=== PATIENT | female | born 1985 | race Caucasian/White ===

== ENCOUNTER 2018-08-04 15:05 | Outpatient (CLI) | payer BC ==
--- NOTE | 2018-08-04 17:10 | RAD ---
HYSTEROSALPINGOGRAM: 08/04/18 HISTORY: Difficulty getting . COMPARISON: None. EXPOSURE: 0.6 minutes. 115 uGy*m2. FINDINGS: The initial advanced practice psychiatric nurse pelvic radiograph demonstrates fecal material. Contrast was injected in a retrograde fashion and opacifies a normal appearing endometrium. There is contrast opacifying the left and right fallopian tube. There is free spillage into the left and right hemipelvis, demonstrating bilateral fallopian tube patency. The balloon was deflated and the lower u terine segment appears to be unremarkable. IMPRESSION: Patency in the left and right fallopian tube. POS: [facility]
== END 2018-08-04 15:06 | disposition home or self-care (01) ==
LOC: RAD 15:05
DX: N97.9 Female infertility, unspecified (principal)
CPT/HCPCS: 58340; 74740